=== PATIENT | female | born 1980 | race Two or more races ===

== ENCOUNTER 2022-06-20 08:02 | Emergency (ER) | payer SELFPAY ==
[~2022-06-20] VITALS: Ht 165.1 cm; Wt 91.3 kg
[2022-06-20 08:24] VITALS: BP 151/89
[2022-06-20] MEDS ORDERED: cefTRIAXone SOD 1,000 MG VL IM ONE (09:00)
[2022-06-20] MEDS ORDERED: AUG875T PO (09:04)
== END 2022-06-20 09:24 | disposition home or self-care (01) ==
LOC: ER 08:02
DX: L02.511 Cutaneous abscess of right hand (principal); B08.4 Enteroviral vesicular stomatitis with exanthem
CPT/HCPCS: 10060; 96372; 99283; J0696